=== PATIENT | male | born 1980 | race Caucasian/White ===

== ENCOUNTER 2019-12-29 20:43 | Emergency (ER) | payer OTHER ==
[~2019-12-29] VITALS: Ht 180.3 cm; Wt 114.8 kg
[2019-12-29] MEDS ORDERED: ZOLOFT100 MG (21:09)
[2019-12-29] MEDS ORDERED: ZESTRIL20 MG (21:09)
[2019-12-29] MEDS ORDERED: VENTOLIN HFA18 GM (21:10)
== END 2019-12-29 23:10 | disposition home or self-care (01) ==
LOC: ED 20:43
DX: S09.90XA Unspecified injury of head, initial encounter (principal); S01.412A Laceration without foreign body of left cheek and temporomandibular area, initial encounter; S01.511A Laceration without foreign body of lip, initial encounter; I10 Essential (primary) hypertension; F32.9 Major depressive disorder, single episode, unspecified; Z79.899 Other long term (current) drug therapy; Y04.2XXA Assault by strike against or bumped into by another person, initial encounter
CPT/HCPCS: 70450; 70486; 99284-25